=== PATIENT | male | born 1970 | race Caucasian/White ===

== ENCOUNTER 2022-09-04 08:03 | Outpatient (CLI) | payer BC, SELFPAY ==
[2022-09-04 19:48] LABS: Potassium 3.9 mmol/L (3.4-5.0)
[2022-09-04 20:00] LABS: LDL Cholesterol Direct 86 mg/dL
[2022-09-04 20:09] LABS: Alanine Aminotransferase 36 U/L (6-50); Albumin Level 4.5 g/dL (3.5-5.1); Alkaline Phosphatase 52 U/L (38-126); Anion Gap 8 mmol/L (8-16); Aspartate Amino Transferase 27 U/L (17-59); Bilirubin,Total 0.9 mg/dL (0.2-1.3); Blood Urea Nitrogen 12 mg/dL (9-20); Carbon Dioxide 28 mmol/L (22-30); Chloride 104 mmol/L (98-107); Cholesterol 139 mg/dL (0-200); Estimated Glomerular Filt Rate > 60; Glucose 83 mg/dL (65-110); HDL Direct 30 mg/dL; Sodium 140 mmol/L (137-145); Triglycerides 103 mg/dL (<150)
[2022-09-04 20:19] LABS: Prostate Specific Antigen 1.3 ng/mL (< OR = 4.0)
== END 2022-09-04 08:04 | disposition home or self-care (01) ==
LOC: ANHGOSHLAB 08:05
PROVIDERS: PCP Family Medicine; Visit Provider Family Medicine
DX: E78.5 Hyperlipidemia, unspecified (principal); N40.0 Benign prostatic hyperplasia without lower urinary tract symptoms
CPT/HCPCS: 36415; 80053; 80061; 84153; G0103

== ENCOUNTER 2022-09-23 08:39 | Outpatient (CLI) | payer BC, SELFPAY ==
--- NOTE | 2022-10-05 17:24 | WPDHOMESLEEP ---
Sleep Study - Home Unattended Date of Study: 09/23/22 Ordering Provider: Theodore Funes MD Interpreting Provider: Sudha Mueller, DO Home Sleep Study Type: Watch PAT Height: 1.89 m Weight: 111.13 kg Body Mass Index: 31.0 Neck Circumference (inches): 16 [place]: 3 Reason for Sleep Study Witnessed apneas Sleep History The patient is a 52-year-old male with hypertension, indigestion and benign prostatic hyperplasia that had a sleep study ordered by his primary care for evaluation of sleep apnea. The patient denies awakening from sleep short of breath. He denies awakening at night with heartburn, belching or cough. He frequently snores and is frequently loud enough that others complain. He rarely has trouble sleeping when he has a cold. He denies waking up gasping for air throughout the night. He frequently has breathing problems at night observed by himself or others. He rarely sweats excessively at night. He rarely has heart palpitations or irregular heartbeats during the night. He denies falling asleep during the day and denies falling asleep while driving. He denies sleep paralysis, cataplexy and hypnagogic / hypnopompic hallucinations. He denies having trouble at school or work due to sleepiness. He rarely has nightmares but occasionally remembers his dreams. He rarely has thoughts racing through his mind. He rarely feels sad, depressed or anxious. He occasionally has muscular tension. He rarely notices parts of his body jerk. He rarely kicks during the night. He rarely has crawling and aching feelings in his legs and rarely has leg pain during the night. He rarely grinds his teeth during sleep but occasionally awakens with a morning jaw pain. He is frequently bothered by pain during the day but rarely awakened by pain during the night. He frequently wakes up feeling stiff in the morning. He frequently wakes up with sore or achy muscles. He occasionally wakes up with pain in the neck, spine and other joints. He goes to bed at 9:00 p.m. on weekdays and at 10:00 p.m. on the weekends. It takes him 5-10 minutes to fall asleep. He wakes up 1-3 times throughout the night for unknown reasons. When he awakens, he will check the clock and fall back asleep within a few minutes. He wakes up at 4:30 a.m. on weekdays and at 5:30 a.m. on the weekends. He typically gets 7-1/2 hours of sleep per night. He does not stay in bed after waking up in the morning. He currently lives with his . He does not consume any caffeinated beverages within 2 hours of bedtime. He does not engage in physical exercise before bedtime. He will read before falling asleep. He will take naps in the afternoon or the evening and they are refreshing. He consumes 1 cup of coffee per day. He consumes 1 alcoholic beverage per week. He denies tobacco and recreational drug use. [facility] Past Medical History Medical History BPH (benign prostatic hyperplasia) Obesity (BMI 30.0-34.9) Overweight (BMI 25.0-29.9) Family History Family History Mother Hypertension Family history of congestive heart failure Family history of cardiovascular disease Grandparent Hypertension Family history of lung cancer Family history of cardiovascular disease Father Depression Family history of suicide Sibling Family history of multiple sclerosis Social History Social History Smoking status: Never smoker Alcohol intake: current Lack of Transportation: No Lack of Food: Never True Current Housing: I Have Housing Concerned About Future Housing: No Difficulty Paying Gas/Electric Bills: No Difficulty Paying for Meds: No Currently Unemployed: No Education: Associate Degree Difficulty w/ Childcare or Family Care: No Medications Home Medications Medic
[2022-10-05 17:33] VITALS: BMI 31.0
== END 2022-09-24 10:20 | disposition home or self-care (01) ==
LOC: ANHCSM 08:44
PROVIDERS: PCP Family Medicine; Visit Provider Family Medicine
DX: G47.30 Sleep apnea, unspecified (principal); G47.9 Sleep disorder, unspecified
CPT/HCPCS: 95800

== ENCOUNTER 2024-01-07 01:05 | Day surgery (SDC) | payer BC, SELFPAY ==
[2024-01-07 06:23] VITALS: BP 140/84; PULSE 69; RESP 18; TEMP 36.4; O2SAT 99; BMI 32.5
[2024-01-07] MEDS: LACTATED RINGERS 1,000 ML 30 ML IV CONT (06:37)
--- NOTE | 2024-01-07 06:43 | WPDANESEPPF ---
Anes - Initial Pre Proc Eval Procedure: Operation Date: 01/07/24 07:30 Proposed Procedures p Screening Colonoscopy - Marcus Goldstein MD Date/Time: 01/07/24 06:43 Surgeon: Marcus Goldstein MD Pre Op Diagnosis: Neoplasm screening Patient Data Age: 53 Gender: M Height: 1.85 m Weight: 111.9 kg Last Vital Signs Temp 97.5 F L 01/07/24 06:23 Pulse 69 01/07/24 06:23 Resp 18 01/07/24 06:23 BP 140/84 01/07/24 06:23 Pulse Ox 99 01/07/24 06:23 O2 Del Method Room Air 01/07/24 06:23 Allergies Allergy/AdvReac Type Severity Reaction Status Date / Time No Known Allergies Allergy Verified 01/07/24 06:21 Home Medications Medication Instructions Recorded Confirmed Type ascorbic acid (vitamin C) 500 mg 500 mg PO DAILY 03/28/21 01/07/24 History capsule aspirin 81 mg tablet,delayed 81 mg PO DAILY 03/28/21 01/07/24 History release aoiqnjjm-mhg-akrhe acid 0.4 1 tablet PO DAILY 03/28/21 01/07/24 History mg-lycopene 300 mcg-lutein 250 mcg tablet (Centrum Silver) polyethylene glycol 3350 17 17 g PO DAILY 03/28/21 01/07/24 History gram/dose oral powder (Miralax) psyllium husk 0.4 gram capsule 0.4 g PO DAILY 03/28/21 01/07/24 History (Metamucil) alprazolam 0.5 mg tablet (Xanax) 0.5 mg PO TID PRN anxiety #30 tabs 08/13/21 01/07/24 Rx famotidine 20 mg tablet (Acid 20 mg PO QHS PRN Acid Reflux 09/03/23 01/07/24 History [employer] (famotidine)) lisinopril 10 mg tablet 10 mg PO DAILY #90 tabs 11/22/23 01/07/24 Rx metoprolol succinate 50 mg 50 mg PO Q12H #180 tabs 11/22/23 01/07/24 Rx tablet,extended release 24 hr (Toprol XL) omeprazole 20 mg capsule,delayed 20 mg PO PRN acid 12/24/23 01/07/24 History release tadalafil 20 mg tablet (Cialis) 20 mg PO PRN PRN sexual activity 12/24/23 01/07/24 History Patient hx anesthesia problems: none Family hx anesthesia problems: none Results Review: All pre-operative results and documents have been reviewed as part of the pre-operative evaluation. [facility] Past Medical History Medical History BPH (benign prostatic hyperplasia) Obesity (BMI 30.0-34.9) Overweight (BMI 25.0-29.9) Family History Family History Mother Hypertension Family history of congestive heart failure Family history of cardiovascular disease Grandparent Hypertension Family history of lung cancer Family history of cardiovascular disease Father Depression Family history of suicide Sibling Family history of multiple sclerosis Social History Social History Smoking status: Never smoker Alcohol intake: current Lack of Transportation: No Lack of Food: Never True Current Housing: I Have Housing Concerned About Future Housing: No Difficulty Paying Gas/Electric Bills: No Difficulty Paying for Meds: No Currently Unemployed: No Education: Associate Degree Difficulty w/ Childcare or Family Care: No Living arrangements: with family Spiritual care concerns: No Anes - Eval Final PreProcedure Day of Procedure 01/07/24 06:43 Patient weight: overweight Heart: regular rate and rhythm Lungs: clear to auscultation Airway: Mallampati scale class II Neurological: alert and oriented Last oral intake: >/= 8 hours ASA classification: II Emergent: no Anesthetic plan: proceed Anesthesia type and monitoring: general GIVS and standard monitoring Results Review: All pre-operative results and documents have been reviewed as part of the pre-operative evaluation. Pt active w elliptical, walking, no cp or sob. Informed Consent: The patient's anesthetic plan and its attendant risks and benefits were discussed with the patient/family/POA. Questions were solicited and answers provided to the satisfaction of the patient/family/POA.
--- NOTE | 2024-01-07 07:09 | PM.HPGS ---
History of Present Illness History of Present Illness Consent: Risks, benefits, and alternatives have been discussed and questions answered. Patient agrees to proceed with procedure. Chief complaint: Neoplasm screening Narrative: Sebastian Sosa is a 53 year old male here for screening colonoscopy, had one about 10 years ago Review of Systems Review of Systems: All systems reviewed & are unremarkable except as noted in HPI and below PMFSH Past Medical History Medical History BPH (benign prostatic hyperplasia) Obesity (BMI 30.0-34.9) Overweight (BMI 25.0-29.9) Family History Family History Mother Hypertension Family history of congestive heart failure Family history of cardiovascular disease Grandparent Hypertension Family history of lung cancer Family history of cardiovascular disease Father Depression Family history of suicide Sibling Family history of multiple sclerosis Social History Social History Smoking status: Never smoker Alcohol intake: current Lack of Transportation: No Lack of Food: Never True Current Housing: I Have Housing Concerned About Future Housing: No Difficulty Paying Gas/Electric Bills: No Difficulty Paying for Meds: No Currently Unemployed: No Education: Associate Degree Difficulty w/ Childcare or Family Care: No Living arrangements: with family Spiritual care concerns: No Meds Home Medications and Allergies Home Medications Medication Instructions Recorded Confirmed Type ascorbic acid (vitamin C) 500 mg 500 mg PO DAILY 03/28/21 01/07/24 History capsule aspirin 81 mg tablet,delayed 81 mg PO DAILY 03/28/21 01/07/24 History release hytaayzw-zdw-rekmj acid 0.4 1 tablet PO DAILY 03/28/21 01/07/24 History mg-lycopene 300 mcg-lutein 250 mcg tablet (Centrum Silver) polyethylene glycol 3350 17 17 g PO DAILY 03/28/21 01/07/24 History gram/dose oral powder (Miralax) psyllium husk 0.4 gram capsule 0.4 g PO DAILY 03/28/21 01/07/24 History (Metamucil) alprazolam 0.5 mg tablet (Xanax) 0.5 mg PO TID PRN anxiety #30 tabs 08/13/21 01/07/24 Rx famotidine 20 mg tablet (Acid 20 mg PO QHS PRN Acid Reflux 09/03/23 01/07/24 History [employer] (famotidine)) lisinopril 10 mg tablet 10 mg PO DAILY #90 tabs 11/22/23 01/07/24 Rx metoprolol succinate 50 mg 50 mg PO Q12H #180 tabs 11/22/23 01/07/24 Rx tablet,extended release 24 hr (Toprol XL) omeprazole 20 mg capsule,delayed 20 mg PO PRN acid 12/24/23 01/07/24 History release tadalafil 20 mg tablet (Cialis) 20 mg PO PRN PRN sexual activity 12/24/23 01/07/24 History Allergies Allergy/AdvReac Type Severity Reaction Status Date / Time No Known Allergies Allergy Verified 01/07/24 06:21 Vital Signs Vital Signs - 24 hr 01/07/24 06:23 Temperature 97.5 F L Pulse Rate 69 Respiratory Rate 18 Blood Pressure 140/84 Pulse Oximetry 99 Oxygen Delivery Room Air Exam Const: General: comfortable and no acute distress HENMT: Face/Nose/Sinus: Normal nares present Eyes: General: appearance normal, both eyes and all related structures Neck: Neck: no JVD Resp: Auscultation: clear to auscultation bilaterally Cardio: Rate: regular rate Rhythm: regular rhythm GI: Inspection: non-distended GI Palp: Yes Soft to palpation Skin: General skin exam: normal color Neuro: General: gait normal Speech: normal speech Extrem: General: normal to inspection Psych: Mental Status: mental status grossly normal Assessment and Plan Assessment and plan (1) Colon cancer screening: Code(s): Z12.11 - Encounter for screening for malignant neoplasm of colon Status: Acute Assessment and Plan: colonoscopy
[2024-01-07 07:36] VITALS: BP 111/67; PULSE 62; RESP 18; O2SAT 99
[2024-01-07 07:46] VITALS: BP 117/73; PULSE 67; RESP 18; O2SAT 98
[2024-01-07 07:56] VITALS: BP 119/80; PULSE 64; RESP 18; O2SAT 100
== END 2024-01-07 08:05 | disposition home or self-care (01) ==
PROVIDERS: PCP Family Medicine; Visit Provider Internal Medicine Gastroenterology
PROC: 0DJD8ZZ Inspection of Lower Intestinal Tract, Via Natural or Artificial Opening Endoscopic (ICD-10-PCS; CPT 45378; principal; 2024-01-07 07:30)
DX: Z12.11 Encounter for screening for malignant neoplasm of colon (principal); K64.8 Other hemorrhoids; E66.9 Obesity, unspecified; Z68.32 Body mass index [BMI] 32.0-32.9, adult
CPT/HCPCS: 45378; J7120